=== PATIENT | male | born 1980 | race Caucasian/White ===

== ENCOUNTER 2017-06-13 04:35 | Emergency (ER) | payer SELFPAY ==
[2017-06-13 04:35] VITALS: BMI 26.6
[2017-06-13] MEDS ORDERED: Morphine 4 MG/ML VIAL ONE ×2 (06:04→08:04)
--- NOTE | 2017-06-13 06:14 | C.PDOC ---
History Of Present Illness The patient presents to the ED for evaluation of penile pain which began around 1 day ago. Patient states he has been drinking for the past 6 days. He denies fever, chills, known trauma/injury, previous history of similar symptoms. Chief Complaint (Nursing): Male Genitourinary History Per: Patient History/Exam Limitations: no limitations Onset/Duration Of Symptoms: Hrs Current Symptoms Are (Timing): Still Present Severity: Moderate Pain Scale Rating Of: 6 Quality Of Discomfort: "Pain" Associated Symptoms: denies: Fever, Chills Alleviating Factors: None Recent travel outside of the [place]: No Additional History Per: Patient Past Medical History Reviewed: Historical Data, Nursing Documentation, Vital Signs Vital Signs: Last Vital Signs Temp 99.1 F 06/13/17 04:58 Pulse 113 H 06/13/17 04:58 Resp 16 06/13/17 04:58 BP 149/96 H 06/13/17 04:58 Pulse Ox 97 06/13/17 06:24 - Medical History PMH: No Chronic Diseases Denies: Diabetes, Hepatitis, HIV, HTN, Chronic Kidney Disease, Seizures, Sexually Transmitted Disease Surgical History: No Surg Hx - [facility] Procedures ALCOHOL DETOXIFICATION (10/12/13) OTHER GROUP THERAPY (01/31/13) Family History: States: Unknown Family Hx - Social History Hx Tobacco Use: No Hx Alcohol Use: Yes Hx Substance Use: No - Immunization History Hx Tetanus Toxoid Vaccination: No Hx Influenza Vaccination: No Hx Pneumococcal Vaccination: No Review Of Systems Constitutional: Negative for: Fever, Chills Cardiovascular: Negative for: Chest Pain, Palpitations Respiratory: Negative for: Cough, Shortness of Breath Gastrointestinal: Negative for: Nausea, Vomiting, Abdominal Pain, Diarrhea Genitourinary: Positive for: Penile Pain. Negative for: Dysuria, Frequency, Hematuria, Penile Discharge Neurological: Negative for: Weakness, Numbness Physical Exam - Physical Exam Appears: Non-toxic, No Acute Distress Skin: Warm, Dry Head: Normacephalic Eye(s): bilateral: Normal Inspection Oral Mucosa: Moist, Other (alcohol on breath ) Neck: Supple Chest: Symmetrical, No Deformity, No Tenderness Cardiovascular: Rhythm Regular, No Murmur Respiratory: No Rales, No Rhonchi, No Wheezing Gastrointestinal/Abdominal: Soft, No Tenderness, No Guarding, No Rebound Male Genital: No Circumcised, Other (edematous and erythematous glans penis that is very tender to palpation ) Extremity: Normal ROM, Capillary Refill (less than 2 seconds ) Neurological/Psych: Oriented x3 Gait: Unable To Assess ED Course And Treatment O2 Sat by Pulse Oximetry: 97 (on RA) Pulse Ox Interpretation: Normal Progress Note: Bloodwork and UA ordered and reviewed. Disposition Counseled Patient/Family Regarding: Studies Performed, Diagnosis - Disposition Disposition Time: 07:02 Condition: FAIR Forms: [facility] (Uzbek) - Clinical Impression Clinical Impression: Alcohol abuse, Paraphimosis - Scribe Statement The provider has reviewed the documentation as recorded by the Scribe (Lakshmi Bledsoe) Provider Attestation: All medical record entries made by the Scribe were at my direction and personally dictated by me. I have reviewed the chart and agree that the record accurately reflects my personal performance of the history, physical exam, medical decision making, and the department course for this patient. I have also personally directed, reviewed, and agree with the discharge instructions and disposition. Physician Patient Turnover Patient Signed Over To: Vidhi Cuenca Handoff Comments: pending labs and urology consult
[2017-06-13] MEDS ORDERED: Morphine 4 MG/ML VIAL IV ONE (07:03)
[2017-06-13 07:35] LABS: BASO % 0.5 % (0.0-2.0); LYMPH # 0.6 K/uL (1.0-4.3); LYMPH % 11.1 % (20.0-40.0); MEAN CELL VOLUME 95.3 fL (80.0-94.0); MEAN CORPUSCULAR HEMOGLOBIN 33.9 pg (27.0-31.0); MEAN CORPUSCULAR HGB CONC 35.6 g/dL (33.0-37.0); MEAN PLATELET VOLUME 7.8 fL (7.2-11.7); MONO # 0.5 K/uL (0.0-0.8); MONO % 10.2 % (0.0-10.0); NEUT % 78.2 % (50.0-75.0); NRBC % 0.4 % (0.0-2.0); RBC 3.82 Mil/uL (4.40-5.90); RED CELL DISTRIBUTION WIDTH 14.6 % (11.5-14.5); WHITE BLOOD COUNT 5.1 K/uL (4.8-10.8)
[2017-06-13 07:58] LABS: INR 1.1; PROTHROMBIN TIME 12.7 SECONDS (9.7-12.2)
[2017-06-13 08:00] LABS: BARBITURATES, UR NEGATIVE (NEGATIVE); BENZODIAZEPINES, UR NEGATIVE (NEGATIVE); OPIATES, UR NEGATIVE (NEGATIVE); PHENCYCLIDINE, UR NEGATIVE (NEGATIVE)
[2017-06-13 08:01] VITALS: PULSE 97
[2017-06-13] MEDS ORDERED: Lidocaine 2% Jelly (Uro-Jet) TOP ONE (08:03)
[2017-06-13] MEDS ORDERED: Lidocaine 2% Jelly (Uro-Jet) ONE (08:08)
[2017-06-13] MEDS ORDERED: Lidocaine 4% (Laryng-O-Jet) Kit MM ONE (08:08)
[2017-06-13 08:10] LABS: SQUAMOUS EPITHIAL < 1 /hpf (0-5); URINE BILIRUBIN NEGATIVE (NEGATIVE); URINE BLOOD 1+ (NEGATIVE); URINE CLARITY Clear (Clear); URINE COLOR Yellow (YELLOW); URINE GLUCOSE (UA) 3+ mg/dL (Normal); URINE LEUKOCYTE ESTERASE NEG Leu/uL (Negative); URINE NITRATE NEGATIVE (NEGATIVE); URINE PROTEIN 2+ mg/dL (NEGATIVE); URINE UROBILINOGEN NORMAL mg/dL (0.2-1.0)
[2017-06-13 08:22] LABS: ALB/GLOB RATIO 1.2 (1.0-2.1); ALBUMIN 4.8 g/dL (3.5-5.0); ALT/SGPT 125 U/L (21-72); AST/SGOT 576 U/L (17-59); BLOOD UREA NITROGEN 5 mg/dL (9-20); CALCIUM 9.8 mg/dl (8.6-10.4); GFR AFRICAN-AMERICAN > 60; GFR NON-AFRICAN AMERICAN > 60
[2017-06-13] MEDS ORDERED: Lidocaine 2% MPF (5 ml) Inj ONE ×4 (09:43→10:06)
[2017-06-13] MEDS ORDERED: Sodium Chloride 0.9% 1,000 ML IV ONE (10:30)
[2017-06-13] MEDS ORDERED: Lidocaine 2% MPF (5 ml) Inj INJ STA ×6 (10:30)
[2017-06-13] MEDS ORDERED: Acetaminophen-Codeine 300/30 mg Tab PO STA (11:57)
[2017-06-13 12:03] VITALS: BP 142/88; RESP 18; TEMP 98; O2SAT 100
[2017-06-13] MEDS ORDERED: Acetaminophen-Codeine 300/30 mg Tab PO ONE (12:27)
== END 2017-06-13 12:50 | disposition home or self-care (01) ==
LOC: C.ER 04:35 → UNDOADMOB 10:45 → C.9E 10:45 → C.ER 12:50
DX: N47.2 Paraphimosis (principal); F10.129 Alcohol abuse with intoxication, unspecified; Y90.3 Blood alcohol level of 60-79 mg/100 ml
CPT/HCPCS: 80053; 81001; 85025; 85610; 85730; 96361; 96374; 96375; 96376; 99285; G0480; J1170; J2270; J2405; J7040